=== PATIENT | female | born 1970 | race Caucasian/White ===

== ENCOUNTER 2017-10-05 08:01 | Day surgery (SDC) | payer BC ==
[~2017-10-05] VITALS: Ht 170.2 cm; Wt 70.0 kg
[~2017-10-05 08:01] MED LIST: LIDOCAINE/MPF 2%-EPI 1:200K, 20 ML ONE; ROPIvacaine/PF 0.5%, 30 ML ONE
[2017-10-05] MEDS ORDERED: LIDOCAINE-MPF 1%, 2ML INFIL ONE (09:00)
[2017-10-05] MEDS ORDERED: MIDAZOLAM 1 MG/ML, 2ML ONE (09:07)
[2017-10-05] MEDS ORDERED: FENTANYL PF 250 MCG/5ML ONE (09:07)
[2017-10-05 09:11] VITALS: BP 113/78
[2017-10-05 09:35] LABS: HCG UR SG 1.026 (1.003-1.030)
[2017-10-05] MEDS ORDERED: SCOPOLAMINE PATCH, 1.5MG PATCH.TD72 TD ONE (09:42)
[2017-10-05] MEDS ORDERED: SCOPOLAMINE PATCH, 1.5MG PATCH.TD72 TD STA (09:47)
[2017-10-05] MEDS ORDERED: LACTATED RINGERS 1,000 ML IV SCH (10:00)
[2017-10-05] MEDS ORDERED: GABAPENTIN 300 MG CAPSULE PO ONE (10:00)
[2017-10-05] MEDS ORDERED: ACETAMINOPHEN 500 MG TABLET PO ONE (10:00)
[2017-10-05] MEDS ORDERED: PROMETHAZINE 12.5 MG SUPP PR PRN (10:30)
[2017-10-05] MEDS ORDERED: LABETALOL 5MG/ML, 20ML IV PRN (10:30)
[2017-10-05] MEDS ORDERED: LORazepam 2 MG/ML, 1ML IVPush PRN (10:30)
[2017-10-05] MEDS ORDERED: MORPHINE SULFATE 4 MG/ML, 1ML IV PRN (10:30)
[2017-10-05] MEDS ORDERED: PROMETHAZINE 25 MG/ML, 1ML IV PRN (10:30)
[2017-10-05] MEDS ORDERED: OXYcodone 5 MG/5 ML ORAL.SOL UDC PO PRN (10:30)
[2017-10-05] MEDS ORDERED: MEPERIDINE/PF 25MG/0.5ML IVPush PRN (10:30)
[2017-10-05] MEDS ORDERED: ALBUTEROL SULFATE 2.5 MG/3 ML NPPB PRN (10:30)
[2017-10-05] MEDS ORDERED: hydrALAzine 20 MG/ML, 1ML IV PRN (10:30)
[2017-10-05] MEDS ORDERED: OXYcodone 5 MG/5 ML ORAL.SOL UDC ONE (11:16)
[2017-10-05] MEDS ORDERED: ACETAMINOPHEN 650 MG/20.3 ML UDC ONE (11:16)
[2017-10-05] MEDS ORDERED: FENTANYL PF 100 MCG/2ML ONE (11:16)
[2017-10-05] MEDS: FENTANYL PF 100 MCG/2ML IV PRN ×2 (11:18→11:27)
[2017-10-05] MEDS ORDERED: CEFAZOLIN 1,000 MG ONE (16:39)
[2017-10-05] MEDS ORDERED: DEXAMETHASONE 4 MG/ML, 1ML ONE (16:39)
[2017-10-05] MEDS ORDERED: PROPOFOL 10 MG/ML, 20ML ONE (16:39)
[2017-10-05] MEDS ORDERED: ONDANSETRON 2MG/ML, 2ML ONE (16:39)
== END 2017-10-05 14:15 ==
LOC: OUT 08:01
PROVIDERS: ATTEND Orthopaedic Surgery
DX: S83.511A Sprain of anterior cruciate ligament of right knee, initial encounter (principal); S83.281A Other tear of lateral meniscus, current injury, right knee, initial encounter; S83.241A Other tear of medial meniscus, current injury, right knee, initial encounter; X58.XXXA Exposure to other specified factors, initial encounter; Y93.89 Activity, other specified; Y92.89 Other specified places as the place of occurrence of the external cause; Y99.8 Other external cause status
CPT/HCPCS: 29880; 29888; 81025; C1713; C1762; J0690; J1100; J2250; J2405; J2704; J2795; J3010; J3490; J7120